=== PATIENT | female | born 1990 | race African-American/Black ===

== ENCOUNTER 2023-03-29 02:45 | Emergency (ER) | payer SELFPAY ==
[2023-03-29] MEDS ORDERED: Ibuprofen 200 MG TAB ONE (04:05)
== END 2023-03-29 04:08 | disposition home or self-care (01) ==
LOC: CSHERS 02:45
DX: M79.642 Pain in left hand (principal)

== ENCOUNTER 2024-01-07 07:02 | Emergency (ER) | payer SELFPAY ==
[2024-01-07] MEDS ORDERED: Bupivacaine PF 0.5% 30 ML VIAL ONE (07:20)
== END 2024-01-07 07:45 | disposition home or self-care (01) ==
LOC: CSHERS 07:02
DX: K04.7 Periapical abscess without sinus (principal); K02.9 Dental caries, unspecified
CPT/HCPCS: 64400; J0665

== ENCOUNTER 2024-02-07 15:23 | Emergency (ER) | payer BC ==
[2024-02-07] MEDS ORDERED: Dexamethasone 10 MG/ML VIAL ONE (18:20)
[2024-02-07] MEDS ORDERED: Ketorolac Tromethamine 30 MG (1 mL) VIAL ONE (18:20)
== END 2024-02-07 18:46 | disposition home or self-care (01) ==
LOC: CSHERS 15:23
DX: J06.9 Acute upper respiratory infection, unspecified (principal)
CPT/HCPCS: 87428; 96372; 99283; J1100; J1885

== ENCOUNTER 2024-03-27 17:03 | Emergency (ER) | payer BC ==
[2024-03-27] MEDS ORDERED: Acetaminophen 500 MG TAB ONE (17:43)
[2024-03-27] MEDS ORDERED: Ketorolac Tromethamine 30 MG (1 mL) VIAL ONE (18:10)
[2024-03-27] MEDS ORDERED: Dexamethasone 10 MG/ML VIAL ONE (18:10)
== END 2024-03-27 18:33 | disposition home or self-care (01) ==
LOC: CSHERS 17:03
DX: J11.1 Influenza due to unidentified influenza virus with other respiratory manifestations (principal); R50.9 Fever, unspecified
CPT/HCPCS: 87428; 96372; 99283; J1100; J1885